=== PATIENT | male | born 1945 | race Caucasian/White ===

== ENCOUNTER → 2024-09-09 | Outpatient (CLI) | payer OTHER ==
[~2024-09-09] MED LIST: ASPI-1005 PO; EMPA25TA PO; EZET10TA48 PO; FURO20TA4 PO; METO-391 PO; POTA-364 PO; RIVA20TA PO; SACU1TAB7 PO; SPIR25TA6 PO
--- NOTE | 2024-09-09 22:52 | HMCSR ---
APPROVED REPORT EXAM: Two-dimensional and M-mode echocardiogram with Doppler and color Doppler. 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 2D Dimensions RVDd4.1 cmLVEF(%)20.0 (>50%)LVED Vol(simp.)153.0 mL IVSd0.8 (0.7-1.1cm)FS(%)9 %LVES Vol(simp.)115.0 mL LVDd6.2 (3.8-5.6cm)LA (2D)5.4 (1.6-4.0cm)LVEF(%, simp.)25 % PWd0.7 (0.7-1.1cm)Ao Root(2D)2.8 (2.0-3.7cm)LA ESV INDEX (BP)63.41 mL/m2 LVDs5.6 (2.5-4.0cm)IVC diam1.8 cm M-Mode Dimensions EPSS1.9 cm Aortic Valve AoV Vmax1.8 m/Kumar Peak GR13.7 mmHgLVOT Vmax1.1 m/s AoV VTI0.4 mAo Mean GR7.5 mmHgLVOT VTI0.24 m Al P1/2T448 ms Mitral Valve MV E Dfoh492.1 cm/sDECEL Djot286 msMV Peak GR9 mmHg MR Max PG135 mmHgP 1/2 T48 msMV Mean GR2 mmHg MVA (PHT)4.5 cm2MR EUJ048 cm2 MR Mean PG78 mmHg Pulmonary Valve PV Vmax0.8 m/sPV VTI0.14 mPV Mean GR1 mmHg PV Peak GR2.3 mmHg Tricuspid Valve TR Vmax3.3 m/sRAP (EST) 8 faMeGZOH09.0 mmHg TR Peak GR44.0 mmHg Left Ventricle The left ventricle is moderately dilated. Severe global hypokinesis. There is normal left ventricular wall thickness. LVEF is 20-25%. Grade III diastolic dysfunction. Right Ventricle The right ventricle is dilated. Right ventricular systolic function appears reduced. Atria The left atrium is severely dilated with an LA ESV index of 63 mL/m. The right atrium appears dilate d. Aortic Valve Medtronic CoreValve TAVR suspected, with normal function. Leaflets appear thin and pliable. AV DVI is 0.6. AV Vmax is 1.8 m/s. Trace central valvular aortic regurgitation. AV Dimensionless Index is 0.6 1 Calculated aortic valve maximum pressure gradient of 14 mmHg and mean pressure gradient of 8 mmHg. Mitral Valve Mitral annular calcification is mild to moderate. Mitral valve leaflets are sclerotic. Mitral regurgi tation is moderate. There is no mitral valve stenosis. Tricuspid Valve The tricuspid valve leaflets appear normal. There is moderate to severe tricuspid regurgitation. Righ t ventricular systolic pressure is estimated at 52 mmHg. Pulmonic Valve The pulmonic valve leaflets appear normal. There is trace pulmonic valvular regurgitation. Great Vessels The aortic root is normal in size. IVC is dilated and collapses >50% with inspiration. Pericardium No pericardial effusion. Other Information Technically limited study due to body habitus. -- *[facility] notified by voice message to / Chery hadley Conclusion The left atrium is severely dilated with an LA ESV index of 63 mL/m. The left ventricle is moderately dilated. There is normal left ventricular wall thickness. Severe global hypokinesis. LVEF is 20-25%. Grade III diastolic dysfunction. Medtronic CoreValve TAVR suspected, with normal function. Leaflets appear thin and pliable. AV DVI is 0.6. AV Vmax is 1.8 m/s. Trace central valvular aortic regurgitation. Mitral annular calcification is mild to moderate. Mitral valve leaflets are sclerotic. There is moderate to severe tricuspid regurgitation. Right ventricular systolic pressure is estimated at 52 mmHg. Mitral regurgitation is moderate. No pericardial effusion.
== END | disposition home or self-care (01) ==
LOC: SHCH 14:11
PROVIDERS: ATTEND Student in an Organized Health Care Education/Training Program
DX: I08.1 Rheumatic disorders of both mitral and tricuspid valves (principal); I25.5 Ischemic cardiomyopathy; I48.20 Chronic atrial fibrillation, unspecified; Z95.2 Presence of prosthetic heart valve
CPT/HCPCS: 93306